=== PATIENT | female | born 1980 | race African-American/Black ===

== ENCOUNTER 2016-08-06 12:33 | Emergency (ER) | payer MEDICAID ==
[2016-08-06 12:46] VITALS: O2SAT 96
--- NOTE | 2016-08-06 13:17 | EDPHY ---
H & P Stated Complaint: wants help with her anxiety /has been off all meds for 3 months HPI/ROS: Chief complaint: Anxiety History of present illness: This is a 35-year-old female who presents to the emergency department for evaluation of anxiety. Patient reports a long history of anxiety. She states she used to be followed by psychiatrist here in town in use to take Paxil, Seroquel and Klonopin. Approximately 3 months ago her psychiatrist moved away. She did follow up with a new psychiatrist but did not establish a good relationship with the psychiatrist. She stopped going to the doctor. She has been off her medication during this period of time. She reports increasing anxiety. She states she can no longer take it. She denies suicidal or homicidal ideation. She denies illness or injury. - Personal History LMP (Females 10-55): 1-7 Days Ago Current Tetanus/Diphtheria Vaccine: Yes - Medical/Surgical History Hx Asthma: No Hx Chronic Respiratory Disease: No Hx Diabetes: No Hx Cardiac Disease: No Hx Renal Disease: No Hx Cirrhosis: No Hx Alcoholism: No Hx HIV/AIDS: No Hx Splenectomy or Spleen Trauma: No Other PMH: PMH:DEPRESSION,SCOLIOSIS - Social History Smoking Status: Current every day smoker Additional Social History: States she is not - Physical Exam Exam: General Appearance: Alert and no distress. Eyes: Pupils equal and round no injection. Respiratory: Chest is non tender, lungs are clear to auscultation. Cardiac: regular rate and rhythm Gastrointestinal: Abdomen is soft and non tender, no masses, bowel sounds normal. Musculoskeletal: Neck is supple and non tender. Extremities have full range of motion and are non tender. Skin: No rashes or lesions. Neurological: Alert and oriented x4. Strength and sensation intact and symmetrical. Psychiatric: No agitation Constitutional: Initial Vital Signs Temperature (C) 37 C 08/06/16 12:44 Heart Rate 101 H 08/06/16 12:44 Respiratory Rate 20 08/06/16 12:44 Blood Pressure 95/72 L 08/06/16 12:44 O2 Sat (%) 96 08/06/16 12:44 O2 Delivery Mode Room Air Allergies/Adverse Reactions: lamotrigine [From Lamictal] Allergy (Verified 08/06/16 12:42) Home Medications: Medication Instructions Recorded clonazePAM [klonoPIN (*)] 1 mg PO BID #20 tab 08/06/16 Medical Decision Making ED Course/Re-evaluation: Patient seen under the supervision of my primary supervising physician Dr. Miriam Ryan. Patient presents to the emergency department reporting anxiety. She is currently off medications. She is nontoxic. I discussed with her I will provide her with a short course of antianxiety medication but the emergency depart will not continue to refill these medications in the future. She is given a short course of Klonopin. Case management has seen this patient and arranged follow-up with primary care and psychiatry this upcoming , 4 days from now. Patient has been given referral information. Home care is discussed. Return precautions are given. Patient voiced understanding and agreement with plan. Departure - Departure Disposition: Home, Routine, Self-Care Clinical Impression: Anxiety Condition: Good Instructions: Anxiety (ED) Additional Instructions: You have an appointment with Paola Sosa on 08/09/16 at 8a.m. at [facility] located at [address] [place] [address]. Please call them if you need to cancel or reschedule: [phone] Follow-up with the resources you were provided for continued evaluation and care If symptoms worsen or new symptoms develop return to the emergency department for recheck Referrals: [facility] [Outside] - As per Instructions [facility] [Outside] - As per Instructions Prescriptions: clonazePAM [klonoPIN (*)] 1 mg PO BID #20 tab
[2016-08-06 14:20] VITALS: BP 133/78; PULSE 78; RESP 16; TEMP 98.4
== END 2016-08-06 14:18 | disposition home or self-care (01) ==
LOC: EEVIPCON 12:33
DX: F41.9 Anxiety disorder, unspecified (principal); F17.200 Nicotine dependence, unspecified, uncomplicated

== ENCOUNTER 2016-08-17 10:33 | Emergency (ER) | payer MEDICAID ==
[2016-08-17 10:41] VITALS: BP 110/85; PULSE 96; RESP 16; TEMP 98.6; O2SAT 98
== END 2016-08-17 11:15 | disposition left against medical advice (07) ==
DX: Z53.21 Procedure and treatment not carried out due to patient leaving prior to being seen by health care provider (principal)

== ENCOUNTER 2016-08-22 12:02 | Emergency (ER) | payer MEDICAID ==
[2016-08-22 12:10] VITALS: BP 103/74; PULSE 84; RESP 22; TEMP 98.1; O2SAT 100
--- NOTE | 2016-08-22 13:39 | EDPHY ---
H & P Time Seen by Provider: 08/22/16 13:35 HPI/ROS: HPI: 35-year-old female presents to emergency department with chief concern anxiety. Reports ongoing issues with anxiety including nervous sensation in her chest, difficulty sleeping, mild shortness of breath with panic attacks. Denies dizziness, current shortness of breath, chest pain, heart racing, nausea or vomiting. No suicidal homicidal ideation. No visual or auditory hallucination. She has been a patient at [facility] but refused to go back, stating I will Michael them. She is an established patient at [facility] but could not get in this morning. She has been seen multiple times in the past at the ER for same chief concern. She has been counseled regarding not receiving benzo refills here in the ED as this is not appropriate. She chooses not to follow up [facility]. Has taken Paxil and Seroquel in the past, but is out of this medications currently. ROS:10 point review of systems is negative other than as stated in HPI Smoking Status: Current every day smoker Physical Exam: Vital signs stable, reviewed by me General: Awake, alert, calm, cooperative. No acute distress. Head: Normalocephalic. Atraumatic. EENT: PERRLA. EOMI. No pallor or injection. Anicteric. No nystagmus. Neck: Supple, nontender. No lymphadenopathy. Full range of motion. Respiratory: Breathing unlabored. Breath sounds equal bilaterally and clear to auscultation. No adventitious sounds. CV: Chest nontender, atraumatic. Heart rate regular. No murmur Neuro: Alert. Oriented x 3. Speech clear. Nonfocal cranial nerves throughout. Sensation intact all extremities. Strength 5+ all extremities. Follows commands. Skin: Skin warm, dry, intact. No rashes, abrasions, or lacerations. Skin turgor normal. Extremities: Full range of motion in all 4 extremities. Mental status: Interactive, appropriate, well-groomed. Constitutional: Initial Vital Signs Temperature (C) 36.7 C 08/22/16 12:08 Heart Rate 84 08/22/16 12:08 Respiratory Rate 22 H 08/22/16 12:08 Blood Pressure 103/74 08/22/16 12:08 O2 Sat (%) 100 08/22/16 12:08 O2 Delivery Mode Room Air Allergies/Adverse Reactions: escitalopram oxalate [From Lexapro] Allergy (Verified 08/22/16 12:07) lamotrigine [From Lamictal] Allergy (Verified 08/22/16 12:07) Home Medications: Medication Instructions Recorded clonazePAM [klonoPIN (*)] 1 mg PO BID #20 tab 08/06/16 clonazePAM [klonoPIN (*)] 1 mg PO TID PRN #12 tab 08/22/16 Medical Decision Making ED Course/Re-evaluation: 35-year-old female presents to ED with chief concern anxiety. She has been a patient at [facility] but currently refusing to follow up with them stating, "I am going to michael them." She has been counseled in the past regarding benzo refills here in the ED, and was told she would no longer receive them. She is established as a patient at [facility] and is able to follow up tomorrow. No suicidal or homicidal ideation. No visual or auditory hallucination. No systemic complaints. Vitals are stable. I have refilled her Klonopin for 5 days and counseled her that she will no longer receive refills here in the ED. That she will need to follow up as discussed. She agrees to do so. Case management visited with her today and offered her an appointment at [facility] on Saturday. She refused. Differential Diagnosis: Differential diagnosis includes but is not limited to anxiety, depression, drug- seeking behavior, Departure - Departure Disposition: Home, Routine, Self-Care Clinical Impression: Anxiety Condition: Good Instructions: Generalized Anxiety Disorder (ED) Additional Instructions: Plan: [facility] for [facility] without fail--When you call to schedule appointment, please let the office know you are an "ER follow up" appointment" You have been offered an appointment by case management at [facility] on Saturday and have declined this Clonazepam 1 mg every 8 hours as needed for anxiety--Never drink or drive while taking this medication. This medication impairs decision making capacity so do not work or sign important documents while taking. This medication its constipating so drink plenty of fluids and consider an [id number] stool softener such as docusate sodium (Colace) while taking this medication. This medication has addictive properties. You should use the least amount for the shortest amount of time. [facility] do not refill narcotic pain medication prescriptions. This is a hospital policy. You will need to follow up as indicated for recheck for further narcotic refills. As discussed during your last visit and this visit, you will not be given further refills of your clonazepam and medication here in emergency department, you will need to follow up with your primary care provider for further refills and to address your ongoing anxiety issues Referrals: NONE *PRIMARY CARE P,. [Primary Care Provider] - As per Instructions Paola Sosa, PAC [Physician [employer] Guide] - As per Instructions Stand Alone Forms: Narcotic Guidelines Prescriptions: clonazePAM [klonoPIN (*)] 1 mg PO TID PRN #12 tab PRN Reason: Anxiety
== END 2016-08-22 13:48 | disposition home or self-care (01) ==
DX: F41.9 Anxiety disorder, unspecified (principal); F17.200 Nicotine dependence, unspecified, uncomplicated